=== PATIENT | male | born 1950 | race Caucasian/White ===

== ENCOUNTER 2021-03-08 15:34 | Inpatient (IN) | payer OTHER ==
[~2021-03-08] VITALS: Ht 182.8 cm; Wt 75.5 kg
[2021-03-08] MEDS ORDERED: BACLOFEN5 MG PO (16:18)
[2021-03-08] MEDS ORDERED: DULCOLAX5 M1 PO (16:20)
[2021-03-08] MEDS ORDERED: KLONOPIN1 M1 PO (16:21)
[2021-03-08] MEDS ORDERED: HYDROXYZINE HCL25 MG PO (16:21)
[2021-03-08] MEDS ORDERED: MAGNESIUM400 M1 PO (16:22)
[2021-03-08] MEDS ORDERED: MELATONIN5 M7 PO (16:24)
[2021-03-08] MEDS ORDERED: HYDROCODONE-AC1 EACH PO (16:27)
[2021-03-08] MEDS ORDERED: DAILY VALUE1 EACH PO (16:28)
[2021-03-08] MEDS ORDERED: REMERON15 M2 PO (16:29)
[2021-03-08 16:54] VITALS: BP 118/57
[2021-03-08] MEDS ORDERED: GABAPENTIN100 M2 PO (16:57)
[2021-03-08] MEDS ORDERED: DEPAKOTE250 MG PO (17:00)
[2021-03-08] MEDS ORDERED: DEPAKOTE500 MG PO (17:01)
[2021-03-08] MEDS ORDERED: ROZEREM8 MG PO (17:02)
[2021-03-08 20:45] VITALS: BP 118/57
[2021-03-09 06:36] LABS: HEMATOCRIT 22.5 % (42.0-52.0); MEAN CELL VOLUME 86.9 fl (80.0-94.0); MEAN CORPUSCULAR HGB 26.3 pg (27.0-31.0); MEAN CORPUSCULAR HGB CONC 30.2 g/dl (33.0-37.0); MEAN PLATELET VOLUME 9.1 fl (9.6-12.3); PLATELET COUNT AUTOMATED 267 10*3/uL (130-400); RED BLOOD COUNT 2.59 10*6/uL (4.50-5.90); RED CELL DISTRI WIDTH 14.6 % (0-14.5); WHITE BLOOD COUNT 5.1 10*3/uL (4.8-10.8)
[2021-03-09 06:52] LABS: ALBUMIN 2.3 gm/dl (3.1-4.5); POTASSIUM 4.2 mmol/L (3.5-5.1)
[2021-03-09 07:04] LABS: CREATININE 1.66 mg/dL (0.70-1.30); TOTAL PROTEIN 7.1 gm/dL (6.4-8.2)
[2021-03-09 07:22] LABS: BASOPHILS 1 % (0-1); PLATELET SUFFICIENCY NORMAL (NORMAL); TOTAL CELLS COUNTED 100 #CELLS
[2021-03-09 07:34] LABS: THYROID STIM HORMONE (HS) 0.875 uIU/ml (0.358-4.75)
[2021-03-09 08:00] VITALS: BP 133/85
[2021-03-09 08:44] LABS: VITAMIN D, 25-HYDROXY 86.5 ng/mL (30-100)
[2021-03-13] MEDS ORDERED: ERTAPENEM1 GM IV (11:23)
[2021-03-13] MEDS ORDERED: VANCOMYCIN1.25 GM/12 IV (11:27)
[2021-03-17] MEDS ORDERED: Carafate1 GM PO (11:19)
[2021-03-17] MEDS ORDERED: HYDROCODONE-AC1 EACH PO (11:19)
[2021-03-17] MEDS ORDERED: PROTONIX40 MG PO (11:19)
== END 2021-03-09 08:59 | disposition short-term general hospital (02) | DRG 885 ==
LOC: 3N 15:34
PROVIDERS: ADMIT Psychiatry & Neurology Psychiatry; ATTEND Psychiatry & Neurology Psychiatry
PROC: 30233N1 Transfusion of Nonautologous Red Blood Cells into Peripheral Vein, Percutaneous Approach (ICD-10-PCS; principal; 2021-03-09)
DX: F31.5 Bipolar disorder, current episode depressed, severe, with psychotic features (principal); E43 Unspecified severe protein-calorie malnutrition; N18.30 Chronic kidney disease, stage 3 unspecified; F41.9 Anxiety disorder, unspecified; Z88.8 Allergy status to other drugs, medicaments and biological substances; Z79.899 Other long term (current) drug therapy; Z79.1 Long term (current) use of non-steroidal anti-inflammatories (NSAID)